=== PATIENT | female | born 1955 | race Hispanic/Latino ===

== ENCOUNTER 2020-08-16 05:30 | Emergency (ER) | payer OTHER ==
[~2020-08-16] VITALS: Ht 152.4 cm; Wt 84.8 kg
--- OUTSIDE RECORDS SUMMARY | 2020-08-16 05:55 | XMS REPORT | Continuity of Care Document ---
Author Author [facility] t Organization [facility] Address [address] [place] [address] Phone Unavailable Care Team Providers Care Tax Intern Name Role Phone Karina DODGE, Janelle PCP Fe Seay MD, Shanice Cha Attphys [phone] Tanya RN, Gabriela Attphys Unavailable Eddie NEGRO, Ga Bolaños Attphys Unavailable Mee Unger DO Attphys Karina DODGE, Janelle Attphys Payers Payer Name Policy Type Policy Number Effective Date Expiration Date S luiza AETNAAETNA CHOICE POS [id number] [place] [address] xxxxxxxxxx 2019 00:00[facility]00 [id number] [place] [address] xxxxx 2017 00:00:00 2022 2 3:59:59 [facility] Problems Condition Name Condition Details Condition Category Status Onset Date Resolution Date Last Treatment Date Treating Clinician Comments Source Carpal tunnel syndrome of right wrist Carpal tunnel syndrome of right wrist Disease Active 2018-01-06 00:00:00 [facility] Controlled type 2 diabetes mellitus with out complication, without long-term current use of insulin Controlled type 2 diabetes mellitus with out complication, without long-term current use of insulin Disease Active 2018-01-06 00:00: 00 [facility] Chronic tension headaches - Left-sided and occur every 3-4 weeks since 2002 Chronic tension headaches - Left-sided and occur every 3-4 weeks since 2002 Disease Active 2018-01-06 00:00:00 [facility] Mixed hyperlipidemia Mixed hyperlipidemia Disease Active 00:00:00 [facility] Generalized weakness Generalized weakness Disease Active 00:00:00 [facility] S/P carpal tunnel release S/P carpal tunnel release Disease Ac tive 2017-10-03 00:00:00 [facility] Endometrial polyp Endometrial polyp Disease Active 2015-10-05 00:00:00 [facility] Cataracts, both eyes Cataracts, both eyes Disease Active 00:00:00 [facility] No diabetic retinopathy in both eyes No diabetic retinopathy in both eyes Disease Active 2015-05-02 00:00:00 [facility] Pain in joint involving shoulder region Pain in joint involv ing shoulder region Disease Active 2014-10-03 00:00:00 [facility] Weakness Weakness Disease Active 2014-10-03 00:00:00 [facility] Gingivitis Chronic Gingivitis Chronic Disease Active 2014-07-12 00:00:0 0 [facility] Decay, teeth Decay, teeth Disease Active 2014-05-03 00:00:00 [facility] Onychomycosis Onychomycosis Disease Active 2009-01-13 00:00:00 [facility] Essential hypertension, benign Essential hypertension, benign Disease Active [facility] Metabolic syndrome Metabolic syndrome Disease Active [facility] Allergies, Adverse Reactions, Alerts Allergy Name Allergy Type Status Severity Reaction(s) Onset Date Inacti ve Date Treating Clinician Comments Source Enalapril Propensity to adverse reactions to drug Active Cough 2007-05-11 00:00:00 [facility] Family History Family Member Diagnosis Comments Start Date Stop Date Source Natural brother Diabetes [facility] alth Social History Social Habit Start Date Stop Date Quantity Comments Source Sex Assigned At [facility] Exposure to SARS-CoV-2 (event) Yes [facility] Alcohol intake 2020-07-10 00:00:00 2020-07-10 00:00:00 Current non-drinker of alcohol (finding) [facility] History SDOH Food Worry 2018-12-10 00:00:00 2018-12-10 00:00:00 1 [facility] Food Scarcity 2018-12-10 00:00:00 2018-12-10 00:00:00 1 [facility] Smoking Status Start Date Stop Date Source Never smoker [facility] Medications Ordered Medication Name Filled Medication Name Start Date Stop Da te Current Medication? Ordering Clinician Indication Dosage Frequency Signature (SIG) Comments Components Source blood glucose meter 2020-07-21 00:00:00 Yes Type 2 diabetes mellitus without complication, without long-term current use of insulin Use as directed.. [facility] lancets 28 gauge 2020-07-21 00:00:00 Yes Controlled type 2 diabetes mellitus without complication, without long-term current use of insulin Q.5D Use 2 times daily [facility] albuterol 90 mcg/actuation inhaler 2020-07-21 00:00:00 Yes COVID-19 virus infection 2{puff} Inhale 2 Puffs by mo ut 4 times daily as needed for Shortness of Breath (cough). [facility] th benzonatate (TESSALON PERLES) 100 mg capsule 00:00:00 2020-07-28 23:59:00 No COVID-19 virus infection 100mg Take 1 capsule by mouth 3 times daily as needed for up to 7 days for Cough. [facility] losartan (COZAAR) 100 mg tablet 2020-07-10 00:00:00 Yes Essential hypertension 100mg QD Take 1 tablet by mouth daily. [facility] metFORMIN (GLUCOPHAGE XR) 500 mg ER extended release tablet 2020-07-10 00:00:00 Yes Type 2 diabetes mellitus with complication, without long-term current use of insulin 500mg Q.5D Take 1 tablet by mouth 2 times daly y. [facility] losartan (COZAAR) 100 mg tablet 2020-07-10 00:00:00 00:00:00 No Essential hypertension 100mg QD Take 1 tablet by mouth daily. [facility] hydroCHLOROthiazide (HYDRODIURIL) 25 mg tablet 2020-06-15 00 :00:00 Yes Essential hypertension TAKE 1 TABLET BY MOUTH ONCE DAILY FOR HIGH BLOOD PRESSURE [facility] escitalopram (LEXAPRO) 5 mg tablet 2020-06-12 00:00:00 Y es Depressed mood 5mg QD Take 1 tablet by mouth daily. [facility] clotrimazole (LOTRIMIN) 1 % topical cream 2020-06-12 00:00:0 0 Yes Onychomycosis Q.5D Apply to affected area 2 times d aily For toe nail fungus. [facility] tropicamide (MYDRIACYL) 0.5 % ophthalmic solution 2020-06-12 00:00:00 2020-12-09 23:59:00 Yes Type 2 diabetes hunter itus with complication, without long-term current use of insulin 1[drp] Instill 1 Drop in each eye once as needed for up to 1 dose (for poor retina scan image). [facility] amLODIPine (NORVASC) 10 mg tablet 2020-06-08 00:00:00 Yes Essential hypertension Take 1 tablet by mouth once daily [facility] blood glucose test strips 2020-01-27 00:00:00 Yes Controlled type 2 diabetes mellitus without complication, without long-term current use of insulin 2 times weekly Use 2 times weekly (once per day on Fri,) to test blood sugar. [facility] lancets 28 gauge 2020-01-25 00:00:00 2020-07-21 00:00:00 No Controlled type 2 diabetes mellitus without complication, without long-term current use of insulin Q.5D Use 2 times daily [facility] atorvastatin (LIPITOR) 40 mg tablet 2019-06-14 00:00:00 Yes Hyperlipidemia LDL goal <100 40mg Take 1 tablet by mouth at bedtime nightly. [facility] omeprazole (PRILOSEC) 20 mg delayed release capsule 06-14 00:00:00 Yes Gastroesophageal reflux disease without esophagitis 20mg QD Take 1 capsule by mouth daily. [facility] losartan (COZAAR) 100 mg tablet 2019-06-14 00:00:00 00:00:00 No Essential hypertension 100mg QD Take 1 tablet by mouth daily. [facility] metFORMIN (GLUCOPHAGE XR) 500 mg ER extended release tablet 2019-06-14 00:00:00 2020-07-10 00:00:00 No Type 2 diabe boom mellitus with complication, without long-term current use of insulin 500mg Q.5D Take 1 tablet by mouth 2 times daily. [facility] hydroCHLOROthiazide (HYDRODIURIL) 25 mg tablet 2 00:00:00 2020-06-15 00:00:00 No Essential hypertension 25mg QD Ta ke 1 tablet by mouth daily FOR HIGH BLOOD PRESSURE. [facility] amLODIPine (NORVASC) 10 mg tablet 2019-06-14 00:00:00 2019 00:00:00 No Essential hypertension 10mg QD Take 1 tablet by mouth daly hoffman [facility] ketoconazole (NIZORAL) 2 % topical cream 2019-03 00:00:00 2020-01-25 00:00:00 No Onychomycosis Q.5D Apply to affected area 2 times daily. [facility] tropicamide (MYDRIACYL) 0.5 % ophthalmic solution 2019-04-08 00:00:00 2019-10-05 23:59:00 No Type 2 diabetes hunter itus with complication, unspecified whether shelter insulin use 1[drp] Instill 1 Drop in each eye once as needed for up to 1 dose (for poor retina scan image). [facility] loratadine (CLARITIN) 10 mg tablet 2018-12-10 00:00:00 00:00:00 No Nasal polyp 10mg QD Take 1 tablet by mouth daily. [facility] blood glucose test strips 2018-06-22 00:00:00 Yes Q.5D 2 times daily to test blood sugar. [facility] lancets 28 gauge 2018-06-22 00:00:00 2020-01-25 00:00:00 No Q.5D Use 2 times daily [facility] fluticasone (FLONASE) 50 mcg/actuation nasal spray 2018-02-13 00:00:00 2020-01-25 00:00:00 No Bronchitis, allergic , unspecified asthma severity, uncomplicated 1{spray} QD Use 1 Veteran in each nostril daily. [facility] naproxen (NAPROSYN) 375 mg tablet 2018-01-06 00:00:00 2019 00:00:00 No Chronic tension-type headache, not intractable 375mg Q .[id number] Take 1 tablet by mouth 3 times daily with meals. [facility] blood glucose meter 2017-11-06 00:00:00 2020-07-21 00:00:00 No Type 2 diabetes mellitus without complication, without long-term current use of insulin Use as directed.. [facility] blood glucose meter 2013-04-14 00:00:00 2020-01-25 00:00:00 No Borderline diabetes Use as directed. [facility] Immunizations Ordered Immunization Name Filled Immunization Name Date Status Comments Source Influenza Vaccine, Seasonal, Injectable 2018-06-22 00:00:0 0 Completed [facility] Herpes Zoster Vaccine In Clinic 2018-02-13 00:00:00 Comple isaac [facility] Influenza <Unspecified> 2017-10-30 00:00:00 Completed [facility] Influenza Vaccine 2016-09-09 00:00:00 Completed [facility] Tdap Tetanus, diphtheria, acellular pertussis Vaccine 2016-06-17 00:00:00 Completed [facility] PPV 23 Pneumococcal Polysaccaride 2016-06-17 00:00:00 Comp leted [facility] Influenza Vaccine 2015-06-26 00:00:00 Completed [facility] Influenza Vaccine 2014-09-12 00:00:00 Completed [facility] Influenza Vaccine 2013-07-19 00:00:00 Completed [facility] Influenza Vaccine 2012-07-09 00:00:00 Completed [facility] Influenza Vaccine 2011-07-25 00:00:00 Completed [facility] Influenza Vaccine 2010-09-24 00:00:00 Completed [facility] Influenza A (H1N1) Vac Injection 2009-10-19 00:00:00 Compl eted [facility] Influenza Vaccine 2008-09-08 00:00:00 Completed [facility] Influenza Vaccine 2007-11-20 00:00:00 Completed [facility] Influenza Vaccine 2006-07-14 00:00:00 Completed [facility] Td Tetanus, diphtheria Toxoids Vaccine 2006-01-17 00:00:00 Completed [facility] Vital Signs Vital Name Observation Time Observation Value Comments Source Systolic blood pressure 2020-06-12 08:15:00 152 mm[Hg] [facility] Diastolic blood pressure 2020-06-12 08:15:00 75 mm[Hg] [facility] Heart rate 2020-06-12 08:15:00 98 /min [facility] Body temperature 2020-06-12 08:15:00 36.72 Flor [facility] Respiratory rate 2020-06-12 08:15:00 16 /min [facility] Body height 2020-06-12 08:15:00 149.9 cm [facility] Body weight 2020-06-12 08:15:00 85.458 kg [facility] BMI 2020-06-12 08:15:00 38.05 kg/m2 [facility] Procedures Procedure Date / Time Performed Performing Clinician Sourc e FECAL OCCULT BLOOD 2020-06-27 11:11:[address] [facility] OPHTHALMOLOGY RETINAL SCAN 2020-06-27 08:45:07 Ange French [facility] MAMMOGRAM BILAT SCREEN DIGITAL 2020-06-27 08:28:06 Starla French [facility] HEMOGLOBIN A1C 2020-06-12 09:09:00 [facility] VITAMIN B12 2020-06-12 09:09:00 [facility] FOLIC ACID 2020-06-12 09:09:00 [facility] FERRITIN 2020-06-12 09:09:00 Rickene [facility] IRON PROFILE 2020-06-12 09:09:00 [facility]la [facility] VIT D, 25-HYDROXY 2020-06-12 09:09:00 Starla French [facility] THYROID STIMULATING HORMONE (TSH) 2020-06-12 09:09:00 Starla Arambula [facility] HEMOCCULT KIT FOR SPECIMEN COLLECTION AT HOME 2020-06-12 08: 49:59 Starla French [facility] DIABETIC FOOT EXAM 2020-06-12 08:33:[address] [facility] COMPREHENSIVE METABOLIC PANEL 2020-01-26 12:49:00 Starla French [facility] LIPID PROFILE 2020-01-26 12:49:00 Starla French is [facility] HEMOGLOBIN A1C 2020-01-26 12:49:00 Starla French is [facility] THYROID STIMULATING HORMONE (TSH) 2020-01-26 12:49:00 [facility] Schmidt [facility] HEMOCCULT KIT FOR SPECIMEN COLLECTION AT HOME 2020-01-25 09: 50:33 RenzoStarla Flynn [facility] Plan of Care Planned Activity Planned Date Details Comments Source Future Scheduled Test 2021-06-27 00:00:00 Breast Cancer Scrn (Yearly) [code = Breast Cancer Scrn (Yearly)] [facility] Scheduled Test 2021-06-27 00:00:00 Screening for brendon gnant neoplasm of colon (procedure) [code = 498221778] [facility] Scheduled Test 2021-06-27 00:00:00 DM Retinal Exam (Y early) [code = DM Retinal Exam (Yearly)] [facility] Scheduled Test 2021-06-12 00:00:00 DM Foot Exam (Year ly) [code = DM Foot Exam (Yearly)] [facility] Scheduled Test 2021-06-12 00:00:00 Hemoglobin A1c dano surement (procedure) [code = 44747234] [facility] Scheduled Test 2020-06-26 00:00:00 Screening for brendon gnant neoplasm of cervix (procedure) [code = 803005214] [facility] Scheduled Test 2020-06-26 00:00:00 Screening for brendon gnant neoplasm of cervix (procedure) [code = 312240540] [facility] Encounters Start Date/Time End Date/Time Encounter Type Admission Type [facility] Care Department Encounter ID Source 2018-09-16 00:00:00 2018-09-16 00:00:00 Outpatient [facility] [id number] [facility] 2018-09-01 00:00:00 2018-09-01 00:00:00 Outpatient [facility] [id number] [facility] 2018-06-29 14:23:19 2018-06-29 14:23:19 Outpatient [facility] [id number] [facility] 2018-06-24 07:14:03 2018-06-24 07:14:03 Outpatient [facility] [id number] [facility] 2018-06-22 07:57:38 2018-06-22 07:57:38 Outpatient [facility] [id number] [facility] 2018-06-10 08:31:49 2018-06-10 08:31:49 Outpatient [facility] [id number] [facility] 2018-06-04 13:30:29 2018-06-04 13:30:29 Outpatient [facility] [id number] [facility] 2018-05-27 00:00:00 2018-05-27 00:00:00 Outpatient [facility] [id number] [facility] 2018-05-21 11:02:03 2018-05-21 11:02:03 Outpatient [facility] [id number] [facility] 2018-05-15 00:00:00 2018-05-15 00:00:00 Outpatient [facility] [id number] [facility] 2018-05-13 00:00:00 2018-05-13 00:00:00 Outpatient [facility] [id number] [facility] 2018-04-27 10:28:07 2018-04-27 10:28:07 Outpatient [facility] [id number] [facility] 2018-03-31 09:00:46 2018-03-31 09:00:46 Outpatient [facility] [id number] [facility] 2018-03-11 08:22:18 2018-03-11 08:22:18 Outpatient [facility] [id number] [facility] 2018-02-13 08:46:20 2018-02-13 08:46:20 Outpatient [facility] [id number] [facility] 2018-02-11 08:59:09 2018-02-11 08:59:09 Outpatient [facility] [id number] [facility] 2018-01-16 06:51:41 2018-01-16 06:51:41 Outpatient [facility] [id number] [facility] 2018-01-06 08:51:23 2018-01-06 08:51:23 Outpatient [facility] [id number] [facility] 2018-01-02 06:47:20 2018-01-02 06:47:20 Outpatient [facility] [id number] [facility] 2017-12-22 14:32:53 2017-12-22 14:32:53 Outpatient [facility] [id number] [facility] 2017-12-19 07:01:37 2017-12-19 07:01:37 Outpatient [facility] [id number] [facility] 2017-12-05 07:10:40 2017-12-05 07:10:40 Outpatient [facility] [id number] [facility] 2017-12-02 10:36:30 2017-12-02 10:36:30 Outpatient [facility] [id number] [facility] 2017-11-21 00:00:00 2017-11-21 00:00:00 Outpatient [facility] [id number] [facility] 2017-11-21 00:00:00 2017-11-21 00:00:00 Outpatient [facility] [id number] [facility] 2017-11-07 07:01:59 2017-11-07 07:01:59 Outpatient [facility] [id number] [facility] 2017-11-06 16:01:07 2017-11-06 16:01:07 Outpatient [facility] [id number] [facility] 2017-11-06 13:22:13 2017-11-06 13:22:13 Outpatient [facility] [id number] [facility] 2017-10-31 00:00:00 2017-10-31 00:00:00 Outpatient [facility] [id number] [facility] 2017-10-17 10:16:25 2017-10-17 10:16:25 Outpatient [facility] [id number] [facility] 2017-10-16 11:32:30 2017-10-16 11:32:30 Outpatient [facility] [id number] [facility] 2017-10-10 00:00:00 2017-10-10 00:00:00 Outpatient [facility] [id number] [facility] 2017-10-03 06:52:16 2017-10-03 06:52:16 Outpatient [facility] [id number] [facility] 2017-10-02 12:25:09 2017-10-02 12:25:09 Outpatient [facility] [id number] [facility] 2017-09-25 00:00:00 2017-09-25 00:00:00 Outpatient [facility] [id number] [facility] 2017-09-18 10:43:00 2017-09-18 10:43:00 Outpatient [facility] [id number] [facility] 2017-09-04 08:26:47 2017-09-04 08:26:47 Outpatient [facility] [id number] [facility] 2017-09-04 00:00:00 2017-09-04 00:00:00 Outpatient [facility] [id number] [facility] 2017-08-31 00:52:00 2017-08-31 00:52:00 Emergency [facility] [id number] [facility] 2017-08-26 06:38:00 2017-08-26 06:38:00 Outpatient [facility] [id number] [facility] 2017-08-26 00:00:00 2017-08-26 00:00:00 Outpatient [facility] [id number] [facility] 2017-08-26 00:00:00 2017-08-26 00:00:00 Outpatient [facility] [id number] [facility] 2017-08-25 12:08:13 2017-08-25 12:08:13 Outpatient [facility] [id number] [facility] 2017-08-25 00:00:00 2017-08-25 00:00:00 Outpatient [facility] [id number] [facility] 2017-08-25 00:00:00 2017-08-25 00:00:00 Outpatient [facility] [id number] [facility] 2017-08-04 09:14:20 2017-08-04 09:14:20 Outpatient [facility] [id number] [facility] 2017-06-10 10:12:01 2017-06-10 10:12:01 Outpatient [facility] [id number] [facility] 2017-06-09 14:37:29 2017-06-09 14:37:29 Outpatient [facility] [id number] [facility] 2017-02-07 16:11:09 2017-02-07 16:11:09 Outpatient [facility] [id number] [facility] Results Test Description Test Time Test Comments Results Result Comments Source FECAL OCCULT BLOOD 2020-06-27 12:13:00 Test Item Occult Blood (test code = 83911-1) Negative Negative ALON (test code = ALON) Collected on 06/26/2020 Lab Interpretation (test code = 35844-4) Normal [facility] [id number] 10:53:36* Test Item Value Reference Range Interpretation Comments RETINAL SCAN-FINAL RESULT (test code = 49809) NORMAL Right Diabetic Retinopathy (test code = 332816) None Right Macular Edema (test code = 86968) None Right Other Suspected Conditions (test code = 39843) None Right Image Quality (test code = 81673) Gradable Image Left Diabetic Retinopathy (test code = 54555) None Left Macular Edema (test code = 04598) None Left Other Suspected Conditions (test code = 21000) None Left Image Quality (test code = 30376) Gradable Image ALON (test code = ALON) Retinal Study Result for MARIBEL REA, a 65 y/o, F (: 1955, )presented to [facility] on 06-27-2020 for a retinal imaging study of the left and right eyes. Based on the findings of the study, the following is recommended for XIMENA MCADAMSormal Scan: Please advise the patient to return for another scan in 1 year. Interpreting Provider's Comments: No comments provided Right eye findings: Normal Result. Negative for Diabetic Retinopathy. Left eye findings: Normal Result. Negative for Diabetic Retinopathy. This result was electronica lly signed by Nawaf Velasquez MD, , Taxonomy: [id number] on 06-27-2020 03:53:36 [facility] time. NOTE: Any pathology noted on this diabetic retinal evaluation should be confirmed by an appropriate ophthalmic examination. [facility] [id number] 08:31:00IMPRESSION: BENIGNThere is no mammographic evidence of malignancy. A 1 year screening mammogram is recommended. I have reviewed the study and agree with the f indings in the report. This document has been electronically signed. Ezequiel Garcia M.D.et,me/penrad:06/27/2020 08:31:44 Imaging Techn ologist: Ms. Josee Melchor RT(R)(M), [facility] Centerletter sent: Silvestre ign Exam Mammogram BI-RADS: 2 Benign G0202 z12.31Interface, Rad/Mammog In - 1 9:32 AM CDT#[id number] - MAMMOGRAM BILAT SCREEN DIGITALBILATERAL DIGITA L SCREENING MAMMOGRAM WITH CAD: 06/27/2020CLINICAL: Screening for malignancy. Co mparison is made to exams dated: 04/08/2019, 03/11/2018, 03/14/2017, 03/14/2016, 10/27/2014, and 08/27/2013 [facility]. There are scattered fibroglandu lar elements in both breasts that could obscure a lesion on mammography. Curren t study was also evaluated with a Computer Aided Detection (CAD) system. There are benign calcifications in both breasts. No significant masses, calcification s, or other findings are seen in either breast. There has been no significant i nterval change.IMPRESSIONIMPRESSION: BENIGNThere is no mammographic evidence of malignancy. A 1 year screening mammogram is recommended. I have reviewed the st udy and agree with the findings in the report.This document has been electronica lly signed.Ezequiel Garcia M.D.et,me/penrad:06/27/2020 08 :31:44 Programs Director: Ms. Josee Melchor RT(R)(M), [facility] enterletter sent: Benign Exam Mammogram BI-RADS: 2 Benign G0202 z12.31[facility] [id number] 03:07:00* Test Item Value Reference Range Interpretation Comments TIBC (test code = 2500-7) 269 ug/dL 250-450 UIBC (test code = 2501-5) 158 ug/dL 118-369 Iron (test code = 2498-4) 111 ug/dL 27-139 % Iron Sat (test code = 2502-3) 41 % 15-55 ALON (test code = ALNO) Performed at: [facility] [place], [place] [id number] Director: Tim Pedraza MD, Phone: [phone] [facility] CenterVitamin D, 29-Isnaqxqpnawijrrpa3748-00-21 13:22:00* Test Item Value Reference Range Interpretation Comments Vit D, 25-Hydroxy (test code = 06056850) 24.1 ng/mL 30-100 L Vitamin D Interpretation (test code = 53928183) Insufficient Suffic ient A Sufficient: >30.0Insufficient: 20.0 - 29.9Deficient: <20.0 Lab Interpretation (test code = 43581-6) Abnormal [facility] CenterVitamin [id number] 13:04:00* Test Item Value Reference Range Interpretation Comments Vitamin B12 (test code = 56756721) 252 pg/mL See comment Normal: 180-914 pg/mLIntermittent: 145-180 pg/mLDeficient: <=145.0 pg/mL [facility] CenterYzcixmUmpkxrzd3091-88-31 13:00:00* Test Item Value Reference Range Interpretation Comments Ferritin (test code = 80234802) 164.7 ng/mL 11-306.8 Lab Interpretation (test code = 36634-3) Normal [facility] CenterFolic [id number] 12:55:00* Test Item Value Reference Range Interpretation Comments Folic Acid (test code = 71446828) 11.8 ng/mL 5.9-24.8 Patien Fasting? (test code = 16001472) Yes [facility] CenterTSH [Thyroid Stimulating Hormone]2020-06-12 12:53:00* Test Item Value Reference Range Interpretation Comments TSH (test code = 84401448) 1.85 0.45- 5.33 uIU/mL If , please see the following reference ranges (not verified by lab): 1st Trimester: 0.05 -3.70 uIU/mL2nd Trimester: 0.31 -4.35 uIU/mL3rd Trimester: 0.41 - 5.18 uIU/mL Lab Interpretation (test code = 68105-1) Normal [facility] CenterHemoglobin [id number] 12:31:00* Test Item Value Reference Range Interpretation Comments Hemoglobin A1c (test code = 4548-4) 7.3 % 4.3-6.1 H Estimated Average Glucose (test code = 01308496) 163 mg/dL 70-11 0 H Lab Interpretation (test code = 11876-7) Abnormal [facility] CenterDIABETIC FOOT [id number] 08:33:01Starla French MD 06/12/2020 9:07 AMDiabetic Foot Exam was performed at 06/12/2020 8:35 AM. Right foot sensation is normal, right foot pulses are normal, right foot appearance is normal. Left foot sensation is normal, left foot pulses are normal, left foot appearance is normal. [facility] CenterLipid Lhobbzx7965-47-30 20:44:00* Test Item Value Reference Range Interpretation Comments Cholesterol (test code = 2093-3) 171.0 mg/dL <=200.0 Triglyceride (test code = 55333463) 162 mg/dL <150 H HDL (test code = 2085-9) 47.0 mg/dL See Reference Range Narrative . LDL (test code = 30833-7) 92 mg/dL <100 Op timal: < 100.0 mg/dLNear Optimal: 120-129 mg/dLBorderline: 130-159 mg/dLHigh: 160-189 mg/dLVery High: >=190 mg/dL Patient Fasting? (test code = 97461349) No ALON (test code = ALON) Patient is not fasting. For a triglyceride result greater than 440 mg/dL, consider re-testing when the patient is in a fasting state. Lab Interpretation (test code = 00891-6) Abnormal [facility] CenterComprehensive Metabolic Eafye0653-94-05 20:44:00* Test Item Value Reference Range Interpretation Comments Sodium (test code = 2951-2) 140 mmol/L 136-145 Potassium (test code = 2823-3) 4.1 mmol/L 3.5-5.1 Chloride (test code = 2075-0) 103 mmol/L 98-107 CO2 (test code = 71569410) 26 mmol/L 21-31 Glucose (test code = 24738206) 121 mg/dL 70-110 H Calcium (test code = 75033630) 9.8 mg/dL 8.6-10.3 Urea Nitrogen (test code = 51945645) 18.0 mg/dL 7-25 Creatinine (test code = 25684226) 1.0 mg/dL 0.6-1.2 Alkaline Phosphatase (test code = 25203172) 104 U/L 34-104 ALT (test code = 29733054) 14 U/L 7-52 AST (test code = 73965764) 14 U/L 13-39 Total Protein (test code = 2885-2) 7.5 g/dL 6-8.3 GFR, Estimated (test code = 19725025) 56 >=90 mL/min/1.73 m2 L Albumin (test code = 43082-5) 4.3 g/dL 3.7-5.3 Anion Gap (test code = 36517812) 11 mmol/L 5-16 Lab Interpretation (test code = 99480-7) [facility]normal [facility]
--- OUTSIDE RECORDS SUMMARY | 2020-08-16 05:55 | XMS REPORT | Continuity of Care Document ---
Author Author [facility] t Organization [facility] Address [address] [place] [address] Phone Unavailable Care Team Providers Care Sales Communications Manager Name Role Phone Karina DODGE, Janelle PCP Fe Seay MD, Shanice Cha Attphys [phone] Tanya RN, Gabriela Attphys Unavailable Eddie NEGRO, Ga Bolaños Attphys Unavailable Mee Unger DO Attphys Karina DODGE, Janelle Attphys Payers Payer Name Policy Type Policy Number Effective Date Expiration Date S luiza AETNAAETNA CHOICE POS [id number][id number] [place] [id number] xxxxxxxxxx 2019 00:00:00 [facility] [id number] [place] [address] xxxxx 2017 00:00:00 2022 2 3:59:59 [facility] Problems Condition Name Condition Details Condition Category Status Onset Date Resolution Date Last Treatment Date Treating Clinician Comments Source Carpal tunnel syndrome of right wrist Carpal tunnel syndrome of right wrist Disease Active 2018-01-06 00:00:00 [facility] Controlled type 2 diabetes mellitus with out complication, without long-term current use of insulin Controlled type 2 diabetes mellitus with out complication, without long-term current use of insulin Disease Active 2018-01-06 00:00: 00 [facility] Chronic tension headaches - Left-sided and occur every 3-4 weeks since 2002 Chronic tension headaches - Left-sided and occur every 3-4 weeks since 2002 Disease Active 2018-01-06 00:00:00 [facility] Mixed hyperlipidemia Mixed hyperlipidemia Disease Active 00:00:00 [facility] Generalized weakness Generalized weakness Disease Active 00:00:00 [facility] S/P carpal tunnel release S/P carpal tunnel release Disease Ac tive 2017-10-03 00:00:00 [facility] Endometrial polyp Endometrial polyp Disease Active 2015-10-05 00:00:00 [facility] Cataracts, both eyes Cataracts, both eyes Disease Active 00:00:00 [facility] No diabetic retinopathy in both eyes No diabetic retinopathy in both eyes Disease Active 2015-05-02 00:00:00 [facility] Pain in joint involving shoulder region Pain in joint involv ing shoulder region Disease Active 2014-10-03 00:00:00 [facility] Weakness Weakness Disease Active 2014-10-03 00:00:00 [facility] Gingivitis Chronic Gingivitis Chronic Disease Active 2014-07-12 00:00:0 0 [facility] Decay, teeth Decay, teeth Disease Active 2014-05-03 00:00:00 [facility] Onychomycosis Onychomycosis Disease Active 2009-01-13 00:00:00 [facility] Essential hypertension, benign Essential hypertension, benign Disease Active [facility] Metabolic syndrome Metabolic syndrome Disease Active [facility] Allergies, Adverse Reactions, Alerts Allergy Name Allergy Type Status Severity Reaction(s) Onset Date Inacti ve Date Treating Clinician Comments Source Enalapril Propensity to adverse reactions to drug Active Cough 2007-05-11 00:00:00 [facility] Family History Family Member Diagnosis Comments Start Date Stop Date Source Natural brother Diabetes [facility] alth Social History Social Habit Start Date Stop Date Quantity Comments Source Sex Assigned At [facility] Exposure to SARS-CoV-2 (event) Yes [facility] Alcohol intake 2020-07-10 00:00:00 2020-07-10 00:00:00 Current non-drinker of alcohol (finding) [facility] History SDOH Food Worry 2018-12-10 00:00:00 2018-12-10 00:00:00 1 [facility] Food Scarcity 2018-12-10 00:00:00 2018-12-10 00:00:00 1 [facility] Smoking Status Start Date Stop Date Source Never smoker [facility] Medications Ordered Medication Name Filled Medication Name Start Date Stop Da te Current Medication? Ordering Clinician Indication Dosage Frequency Signature (SIG) Comments Components Source blood glucose meter 2020-07-21 00:00:00 Yes Type 2 diabetes mellitus without complication, without long-term current use of insulin Use as directed.. [facility] lancets 28 gauge 2020-07-21 00:00:00 Yes Controlled type 2 diabetes mellitus without complication, without long-term current use of insulin Q.5D Use 2 times daily [facility] albuterol 90 mcg/actuation inhaler 2020-07-21 00:00:00 Yes COVID-19 virus infection 2{puff} Inhale 2 Puffs by mo ut 4 times daily as needed for Shortness of Breath (cough). [facility] th benzonatate (TESSALON PERLES) 100 mg capsule 00:00:00 2020-07-28 23:59:00 No COVID-19 virus infection 100mg Take 1 capsule by mouth 3 times daily as needed for up to 7 days for Cough. [facility] losartan (COZAAR) 100 mg tablet 2020-07-10 00:00:00 Yes Essential hypertension 100mg QD Take 1 tablet by mouth daily. [facility] metFORMIN (GLUCOPHAGE XR) 500 mg ER extended release tablet 2020-07-10 00:00:00 Yes Type 2 diabetes mellitus with complication, without long-term current use of insulin 500mg Q.5D Take 1 tablet by mouth 2 times daly y. [facility] losartan (COZAAR) 100 mg tablet 2020-07-10 00:00:00 00:00:00 No Essential hypertension 100mg QD Take 1 tablet by mouth daily. [facility] hydroCHLOROthiazide (HYDRODIURIL) 25 mg tablet 2020-06-15 00 :00:00 Yes Essential hypertension TAKE 1 TABLET BY MOUTH ONCE DAILY FOR HIGH BLOOD PRESSURE [facility] escitalopram (LEXAPRO) 5 mg tablet 2020-06-12 00:00:00 Y es Depressed mood 5mg QD Take 1 tablet by mouth daily. [facility] clotrimazole (LOTRIMIN) 1 % topical cream 2020-06-12 00:00:0 0 Yes Onychomycosis Q.5D Apply to affected area 2 times d aily For toe nail fungus. [facility] tropicamide (MYDRIACYL) 0.5 % ophthalmic solution 2020-06-12 00:00:00 2020-12-09 23:59:00 Yes Type 2 diabetes hunter itus with complication, without long-term current use of insulin 1[drp] Instill 1 Drop in each eye once as needed for up to 1 dose (for poor retina scan image). [facility] amLODIPine (NORVASC) 10 mg tablet 2020-06-08 00:00:00 Yes Essential hypertension Take 1 tablet by mouth once daily [facility] blood glucose test strips 2020-01-27 00:00:00 Yes Controlled type 2 diabetes mellitus without complication, without long-term current use of insulin 2 times weekly Use 2 times weekly (once per day on Fri,) to test blood sugar. [facility] lancets 28 gauge 2020-01-25 00:00:00 2020-07-21 00:00:00 No Controlled type 2 diabetes mellitus without complication, without long-term current use of insulin Q.5D Use 2 times daily [facility] atorvastatin (LIPITOR) 40 mg tablet 2019-06-14 00:00:00 Yes Hyperlipidemia LDL goal <100 40mg Take 1 tablet by mouth at bedtime nightly. [facility] omeprazole (PRILOSEC) 20 mg delayed release capsule 06-14 00:00:00 Yes Gastroesophageal reflux disease without esophagitis 20mg QD Take 1 capsule by mouth daily. [facility] losartan (COZAAR) 100 mg tablet 2019-06-14 00:00:00 00:00:00 No Essential hypertension 100mg QD Take 1 tablet by mouth daily. [facility] metFORMIN (GLUCOPHAGE XR) 500 mg ER extended release tablet 2019-06-14 00:00:00 2020-07-10 00:00:00 No Type 2 diabe boom mellitus with complication, without long-term current use of insulin 500mg Q.5D Take 1 tablet by mouth 2 times daily. [facility] hydroCHLOROthiazide (HYDRODIURIL) 25 mg tablet 2 00:00:00 2020-06-15 00:00:00 No Essential hypertension 25mg QD Ta ke 1 tablet by mouth daily FOR HIGH BLOOD PRESSURE. [facility] amLODIPine (NORVASC) 10 mg tablet 2019-06-14 00:00:00 2019 00:00:00 No Essential hypertension 10mg QD Take 1 tablet by mouth daly hoffman [facility] ketoconazole (NIZORAL) 2 % topical cream 2019-03 00:00:00 2020-01-25 00:00:00 No Onychomycosis Q.5D Apply to affected area 2 times daily. [facility] tropicamide (MYDRIACYL) 0.5 % ophthalmic solution 2019-04-08 00:00:00 2019-10-05 23:59:00 No Type 2 diabetes hunter itus with complication, unspecified whether custodial insulin use 1[drp] Instill 1 Drop in each eye once as needed for up to 1 dose (for poor retina scan image). [facility] loratadine (CLARITIN) 10 mg tablet 2018-12-10 00:00:00 00:00:00 No Nasal polyp 10mg QD Take 1 tablet by mouth daily. [facility] blood glucose test strips 2018-06-22 00:00:00 Yes Q.5D 2 times daily to test blood sugar. [facility] lancets 28 gauge 2018-06-22 00:00:00 2020-01-25 00:00:00 No Q.5D Use 2 times daily [facility] fluticasone (FLONASE) 50 mcg/actuation nasal spray 2018-02-13 00:00:00 2020-01-25 00:00:00 No Bronchitis, allergic , unspecified asthma severity, uncomplicated 1{spray} QD Use 1 [place] in each nostril daily. [facility] naproxen (NAPROSYN) 375 mg tablet 2018-01-06 00:00:00 2019 00:00:00 No Chronic tension-type headache, not intractable 375mg Q .[id number] Take 1 tablet by mouth 3 times daily with meals. [facility] blood glucose meter 2017-11-06 00:00:00 2020-07-21 00:00:00 No Type 2 diabetes mellitus without complication, without long-term current use of insulin Use as directed.. [facility] blood glucose meter 2013-04-14 00:00:00 2020-01-25 00:00:00 No Borderline diabetes Use as directed. [facility] Immunizations Ordered Immunization Name Filled Immunization Name Date Status Comments Source Influenza Vaccine, Seasonal, Injectable 2018-06-22 00:00:0 0 Completed [facility] Herpes Zoster Vaccine In Clinic 2018-02-13 00:00:00 Comple isaac [facility] Influenza <Unspecified> 2017-10-30 00:00:00 Completed [facility] Influenza Vaccine 2016-09-09 00:00:00 Completed [facility] Tdap Tetanus, diphtheria, acellular pertussis Vaccine 2016-06-17 00:00:00 Completed [facility] PPV 23 Pneumococcal Polysaccaride 2016-06-17 00:00:00 Comp leted [facility] Influenza Vaccine 2015-06-26 00:00:00 Completed [facility] Influenza Vaccine 2014-09-12 00:00:00 Completed [facility] Influenza Vaccine 2013-07-19 00:00:00 Completed [facility] Influenza Vaccine 2012-07-09 00:00:00 Completed [facility] Influenza Vaccine 2011-07-25 00:00:00 Completed [facility] Influenza Vaccine 2010-09-24 00:00:00 Completed [facility] Influenza A (H1N1) Vac Injection 2009-10-19 00:00:00 Compl eted [facility] Influenza Vaccine 2008-09-08 00:00:00 Completed [facility] Influenza Vaccine 2007-11-20 00:00:00 Completed [facility] Influenza Vaccine 2006-07-14 00:00:00 Completed [facility] Td Tetanus, diphtheria Toxoids Vaccine 2006-01-17 00:00:00 Completed [facility] Vital Signs Vital Name Observation Time Observation Value Comments Source Systolic blood pressure 2020-06-12 08:15:00 152 mm[Hg] [facility] Diastolic blood pressure 2020-06-12 08:15:00 75 mm[Hg] [facility] Heart rate 2020-06-12 08:15:00 98 /min [facility] Body temperature 2020-06-12 08:15:00 36.72 Flor [facility] Respiratory rate 2020-06-12 08:15:00 16 /min [facility] Body height 2020-06-12 08:15:00 149.9 cm [facility] Body weight 2020-06-12 08:15:00 85.458 kg [facility] BMI 2020-06-12 08:15:00 38.05 kg/m2 [facility] Procedures Procedure Date / Time Performed Performing Clinician Sourc e FECAL OCCULT BLOOD 2020-06-27 11:11:00 Starla French [facility] OPHTHALMOLOGY RETINAL SCAN 2020-06-27 08:45:07 Ange Frnech [facility] MAMMOGRAM BILAT SCREEN DIGITAL 2020-06-27 08:28:06 Starla French [facility] HEMOGLOBIN A1C 2020-06-12 09:09:00 [facility] VITAMIN B12 2020-06-12 09:09:00 [facility] FOLIC ACID 2020-06-12 09:09:00 [facility] FERRITIN 2020-06-12 09:09:00 Rickene [facility] IRON PROFILE 2020-06-12 09:09:00 [facility] VIT D, 25-HYDROXY 2020-06-12 09:09:00 Starla French [facility] THYROID STIMULATING HORMONE (TSH) 2020-06-12 09:09:00 Starla Arambula [facility] HEMOCCULT KIT FOR SPECIMEN COLLECTION AT HOME 2020-06-12 08: 49:59 Starla French [facility] DIABETIC FOOT EXAM 2020-06-12 08:33:01 Starla French [facility] COMPREHENSIVE METABOLIC PANEL 2020-01-26 12:49:00 Starla French [facility] LIPID PROFILE 2020-01-26 12:49:00 [facility] HEMOGLOBIN A1C 2020-01-26 12:49:00 [facility]la [facility] THYROID STIMULATING HORMONE (TSH) 2020-01-26 12:49:00 [facility] Starla Schmidt [facility] HEMOCCULT KIT FOR SPECIMEN COLLECTION AT HOME 2020-01-25 09: 50:33 RenzoStarla Flynn [facility] Plan of Care Planned Activity Planned Date Details Comments Source Future Scheduled Test 2021-06-27 00:00:00 Breast Cancer Scrn (Yearly) [code = Breast Cancer Scrn (Yearly)] [facility] Scheduled Test 2021-06-27 00:00:00 Screening for brendon gnant neoplasm of colon (procedure) [code = 519004153] [facility] Scheduled Test 2021-06-27 00:00:00 DM Retinal Exam (Y early) [code = DM Retinal Exam (Yearly)] [facility] Scheduled Test 2021-06-12 00:00:00 DM Foot Exam (Year ly) [code = DM Foot Exam (Yearly)] [facility] Scheduled Test 2021-06-12 00:00:00 Hemoglobin A1c dano surement (procedure) [code = 80483104] [facility] Scheduled Test 2020-06-26 00:00:00 Screening for brendon gnant neoplasm of cervix (procedure) [code = 563315287] [facility] Scheduled Test 2020-06-26 00:00:00 Screening for brendon gnant neoplasm of cervix (procedure) [code = 385853246] [facility] Encounters Start Date/Time End Date/Time Encounter Type Ad[facility] Type [facility] Care Department Encounter ID Source 2018-09-16 00:00:00 2018-09-16 00:00:[address] [facility] [id number] [facility] 2018-09-01 00:00:00 2018-09-01 00:00:[address] [facility] [id number] [facility] 2018-06-29 14:23:19 2018-06-29 14:23:[address] [facility] [id number] [facility] 2018-06-24 07:14:03 2018-06-24 07:14:[address] [facility] [id number] [facility] 2018-06-22 07:57:38 2018-06-22 07:57:[address] [facility] [id number] [facility] 2018-06-10 08:31:49 2018-06-10 08:31:[address] [facility] [id number] [facility] 2018-06-04 13:30:29 2018-06-04 13:30:[address] [facility] [id number] [facility] 2018-05-27 00:00:00 2018-05-27 00:00:[address] [facility] [id number] [facility] 2018-05-21 11:02:03 2018-05-21 11:02:[address] [facility] [id number] [facility] 2018-05-15 00:00:00 2018-05-15 00:00:[address] [facility] [id number] [facility] 2018-05-13 00:00:00 2018-05-13 00:00:[address] [facility] [id number] [facility] 2018-04-27 10:28:07 2018-04-27 10:28:[address] [facility] [id number] [facility] 2018-03-31 09:00:46 2018-03-31 09:00:46 Outpatient [facility] [id number] [facility] 2018-03-11 08:22:18 2018-03-11 08:22:18 Outpatient [facility] [id number] [facility] 2018-02-13 08:46:20 2018-02-13 08:46:[address] [facility] [id number] [facility] 2018-02-11 08:59:09 2018-02-11 08:59:09 [facility]patient [facility] [id number] [facility] 2018-01-16 06:51:41 2018-01-16 06:51:[address] [facility] [id number] [facility] 2018-01-06 08:51:23 2018-01-06 08:51:[address] [facility] [id number] [facility] 2018-01-02 06:47:20 2018-01-02 06:47:[address] [facility] [id number] [facility] 2017-12-22 14:32:53 2017-12-22 14:32:[address] [facility] [id number] [facility] 2017-12-19 07:01:37 2017-12-19 07:01:[address] [facility] [id number] [facility] 2017-12-05 07:10:40 2017-12-05 07:10:[address] [facility] [id number] [facility] 2017-12-02 10:36:30 2017-12-02 10:36:[address] [facility] [id number] [facility] 2017-11-21 00:00:00 2017-11-21 00:00:[address] [facility] [id number] [facility] 2017-11-21 00:00:00 2017-11-21 00:00:[address] [facility] [id number] [facility] 2017-11-07 07:01:59 2017-11-07 07:01:[address] [facility] [id number] [facility] 2017-11-06 16:01:07 2017-11-06 16:01:[address] [facility] [id number] [facility] 2017-11-06 13:22:13 2017-11-06 13:22:[address] [facility] [id number] [facility] 2017-10-31 00:00:00 2017-10-31 00:00:[address] [facility] [id number] [facility] 2017-10-17 10:16:25 2017-10-17 10:16:[address] [facility] [id number] [facility] 2017-10-16 11:32:30 2017-10-16 11:32:[address] [facility] [id number] [facility] 2017-10-10 00:00:00 2017-10-10 00:00:[address] [facility] [id number] [facility] 2017-10-03 06:52:16 2017-10-03 06:52:[address] [facility] [id number] [facility] 2017-10-02 12:25:09 2017-10-02 12:25:[address] [facility] [id number] [facility] 2017-09-25 00:00:00 2017-09-25 00:00:[address] [facility] [id number] [facility] 2017-09-18 10:43:00 2017-09-18 10:43:[address] [facility] [id number] [facility] 2017-09-04 08:26:47 2017-09-04 08:26:[address] [facility] [id number] [facility] 2017-09-04 00:00:00 2017-09-04 00:00:[address] [facility] [id number] [facility] 2017-08-31 00:52:00 2017-08-31 00:52:00 Emergency [facility] [id number] [facility] 2017-08-26 06:38:00 2017-08-26 06:38:00 Outpatient [facility] [id number] [facility] 2017-08-26 00:00:00 2017-08-26 00:00:[address] [facility] [id number] [facility] 2017-08-26 00:00:00 2017-08-26 00:00:[address] [facility] [id number] [facility] 2017-08-25 12:08:13 2017-08-25 12:08:[address] [facility] [id number] [facility] 2017-08-25 00:00:00 2017-08-25 00:00:[address] [facility] [id number] [facility] 2017-08-25 00:00:00 2017-08-25 00:00:[address] [facility] [id number] [facility] 2017-08-04 09:14:20 2017-08-04 09:14:[address] [facility] [id number] [facility] 2017-06-10 10:12:01 2017-06-10 10:12:[address] [facility] [id number] [facility] 2017-06-09 14:37:29 2017-06-09 14:37:[address] [facility] [id number] [facility] 2017-02-07 16:11:09 2017-02-07 16:11:[address] [facility] [id number] [facility] Results Test Description Test Time Test Comments Results Result Comments Source FECAL OCCULT BLOOD 2020-06-27 12:13:00 Test Item Occult Blood (test code = 99205-3) Negative Negative ALON (test code = ALON) Collected on 06/26/2020 Lab Interpretation (test code = 22073-7) Normal [facility] [id number] 10:53:36* Test Item Value Reference Range Interpretation Comments RETINAL SCAN-FINAL RESULT (test code = 06113) NORMAL Right Diabetic Retinopathy (test code = 312462) None Right Macular Edema (test code = 32729) None Right Other Suspected Conditions (test code = 31734) None Right Image Quality (test code = 04528) Gradable Image Left Diabetic Retinopathy (test code = 01250) None Left Macular Edema (test code = 86515) None Left Other Suspected Conditions (test code = 05935) None Left Image Quality (test code = 66676) Gradable Image ALON (test code = ALON) Retinal Study Result for MARIBEL REA, a 65 y/o, F (: 1955, )presented to [facility] on 06-27-2020 for a retinal imaging study [...] signed by Nawaf Velasquez MD, , Taxonomy: [id number] on 06-27-2020 03:53:36 [facility] time. NOTE: Any pathology noted on this diabetic retinal evaluation should be confirmed by an appropriate ophthalmic examination. [facility] [id number] 08:31:00IMPRESSION: BENIGNThere is no mammographic evidence of malignancy. A 1 year screening mammogram is recommended. I have reviewed the study and agree with the f indings in the report. This document has been electronically signed. Ezequiel Garcia M.D.et,me/penrad:06/27/2020 08:31:44 Imaging Techn ologist: Ms. Josee Melchor RT(R)(M), [facility] Centerletter sent: Silvestre ign Exam Mammogram BI-RADS: 2 Benign G0202 z12.31Interface, Rad/Mammog In - 1 9:32 AM CDT#[id number] - MAMMOGRAM BILAT SCREEN DIGITALBILATERAL DIGITA L SCREENING MAMMOGRAM WITH CAD: 06/27/2020CLINICAL: Screening for malignancy. Co mparison is made to exams dated: 04/08/2019, 03/11/2018, 03/14/2017, 03/14/2016, 10/27/2014, and 08/27/2013 [facility]. There are scattered fibroglandu lar elements in [...] electronica lly signed.Ezequiel Garcia M.D.et,me/penrad:06/27/2020 08 :31:44 Shared Services Manager: Ms. Josee Melchor RT(R)(M), [facility] enterletter sent: Benign Exam Mammogram BI-RADS: 2 Benign G0202 z12.31[facility] [id number] 03:07:00* Test Item Value Reference Range Interpretation Comments TIBC (test code = 2500-7) 269 ug/dL 250-450 UIBC (test code = 2501-5) 158 ug/dL 118-369 Iron (test code = 2498-4) 111 ug/dL 27-139 % Iron Sat (test code = 2502-3) 41 % 15-55 ALON (test code = ALON) Performed at: [facility] [place], [place] [id number] Director: Tim Pedraza MD, Phone: [phone] [facility], [id number] 13:22:00* Test Item Value Reference Range Interpretation Comments Vit D, 25-Hydroxy (test code = 58866652) 24.1 ng/mL 30-100 L Vitamin D Interpretation (test code = 43288781) Insufficient Suffic ient A Sufficient: >30.0Insufficient: 20.0 - 29.9Deficient: <20.0 Lab Interpretation (test code = 33169-8) [id number] 13:04:00* Test Item Value Reference Range Interpretation Comments Vitamin B12 (test code = 96930682) 252 pg/mL See comment Normal: 180-914 pg/mLIntermittent: 145-180 pg/mLDeficient: <=145.0 pg/mL [id number] 13:00:00* Test Item Value Reference Range Interpretation Comments Ferritin (test code = 90942816) 164.7 ng/mL 11-306.8 Lab Interpretation (test code = 16507-2) Normal [facility] [id number] 12:55:00* Test Item Value Reference Range Interpretation Comments Folic Acid (test code = 53011425) 11.8 ng/mL 5.9-24.8 Patien Fasting? (test code = 56465765) Yes [facility] [Thyroid Stimulating Hormone]2020-06-12 12:53:00* Test Item Value Reference Range Interpretation Comments TSH (test code = 91685001) 1.85 0.45- 5.33 uIU/mL If , please see the following reference ranges (not verified by lab): 1st Trimester: 0.05 -3.70 uIU/mL2nd Trimester: 0.31 -4.35 uIU/mL3rd Trimester: 0.41 - 5.18 uIU/mL Lab Interpretation (test code = 38604-3) Normal [facility] [id number] 12:31:00* Test Item Value Reference Range Interpretation Comments Hemoglobin A1c (test code = 4548-4) 7.3 % 4.3-6.1 H Estimated Average Glucose (test code = 35364495) 163 mg/dL 70-11 0 H Lab Interpretation (test code = 20163-2) [facility]normal [facility] [id number] 08:33:01Starla French MD 06/12/2020 9:07 AMDiabetic Foot Exam was performed at 06/12/2020 8:35 AM. Right foot sensation is normal, right foot pulses are normal, right foot appearance is normal. Left foot sensation is normal, left foot pulses are normal, left foot appearance is normal. [facility] HospitalLip[facility] [id number] 20:44:00* Test Item Value Reference Range Interpretation Comments Cholesterol (test code = 2093-3) 171.0 mg/dL <=200.0 Triglyceride (test code = 83756599) 162 mg/dL <150 H HDL (test code = 2085-9) 47.0 mg/dL See Reference Range Narrative . LDL (test code = 65184-2) 92 mg/dL <100 Op timal: < 100.0 mg/dLNear Optimal: 120-129 mg/dLBorderline: 130-159 mg/dLHigh: 160-189 mg/dLVery High: >=190 mg/dL Patient Fasting? (test code = 21496086) No ALON (test code = ALON) Patient is not fasting. For a triglyceride result greater than 440 mg/dL, consider re-testing when the patient is in a fasting state. Lab Interpretation (test code = 23945-6) [facility]normal [facility] HospitalCom[facility] Metabolic [id number] 20:44:00* Test Item Value Reference Range Interpretation Comments Sodium (test code = 2951-2) 140 mmol/L 136-145 Potassium (test code = 2823-3) 4.1 mmol/L 3.5-5.1 Chloride (test code = 2075-0) 103 mmol/L 98-107 CO2 (test code = 40714446) 26 mmol/L 21-31 Glucose (test code = 17047935) 121 mg/dL 70-110 H Calcium (test code = 30599807) 9.8 mg/dL 8.6-10.3 Urea Nitrogen (test code = 60673357) 18.0 mg/dL 7-25 Creatinine (test code = 19445380) 1.0 mg/dL 0.6-1.2 Alkaline Phosphatase (test code = 22489161) 104 U/L 34-104 ALT (test code = 51383048) 14 U/L 7-52 AST (test code = 59078901) 14 U/L 13-39 Total Protein (test code = 2885-2) 7.5 g/dL 6-8.3 GFR, Estimated (test code = 10016593) 56 >=90 mL/min/1.73 m2 L Albumin (test code = 59413-8) 4.3 g/dL 3.7-5.3 Anion Gap (test code = 41591222) 11 mmol/L 5-16 Lab Interpretation (test code = 33050-9) [facility]
--- OUTSIDE RECORDS SUMMARY | 2020-08-16 05:55 | XMS REPORT | Clinical Summary ---
Author Author [facility] ict Organization [facility] ict Address Unknown Phone Unavailable Care Team Providers Care Recovery Manager Name Role Phone Cynthia May DDS [phone] Janelle Collins MD PCP Starla French MD PCP [phone] Allergies Comments Active Allergy Reactions Severity Noted Date Enalapril Cough 05/11/2007 Medications End Date Status Medication Sig Dispensed Refills Start Date Active blood glucose test strips 2 times daily 50 Each 11 to test blood 8 sugar. Active atorvastatin (LIPITOR) 40 Take 1 tablet 90 tablet 3 mg tabletIndications: by mouth at 9 Hyperlipidemia LDL goal bedtime <100 nightly. Active omeprazole (PRILOSEC) 20 Take 1 90 capsule 1 0 mg delayed release capsule by 9 capsuleIndications: mouth daily. Gastroesophageal reflux disease without esophagitis Active blood glucose test 2 times 50 Each 3 02 stripsIndications: weekly Use 2 0 Controlled type 2 times weekly diabetes mellitus without (once per day complication, without on Mon,Th) long-term current use of to test blood insulin sugar. Active amLODIPine (NORVASC) 10 Take 1 tablet 90 tablet 3 mg tabletIndications: by mouth once 0 Essential hypertension daily 12/09/2020 Active tropicamide (MYDRIACYL) Instill 1 15 mL 0 0.5 % ophthalmic Drop in each 0 solutionIndications: Type eye once as 2 diabetes mellitus with needed for up complication, without to 1 dose long-term current use of (for poor insulin retina scan image). Active escitalopram (LEXAPRO) 5 Take 1 tablet 90 tablet 1 mg tabletIndications: by mouth 0 Depressed mood daily. Active clotrimazole (LOTRIMIN) 1 Apply to 56.7 g 3 % topical affected area 0 creamIndications: 2 times daily Onychomycosis For toe nail fungus. Active hydroCHLOROthiazide TAKE 1 TABLET 90 tablet 1 05/24 (HYDRODIURIL) 25 mg BY MOUTH ONCE 0 tabletIndications: DAILY FOR Essential hypertension HIGH BLOOD PRESSURE Active losartan (COZAAR) 100 mg Take 1 tablet 90 tablet 2 tabletIndications: by mouth 0 Essential hypertension daily. Active metFORMIN (GLUCOPHAGE XR) Take 1 tablet 180 tablet 3 500 mg ER extended by mouth 2 0 release times daily. tabletIndications: Type 2 diabetes mellitus with complication, without long-term current use of insulin Active blood glucose Use as 1 Kit 0 meterIndications: Type 2 directed.. 0 diabetes mellitus without complication, without long-term current use of insulin Active lancets 28 Use 2 times 100 Each 1 gaugeIndications: daily 0 Controlled type 2 diabetes mellitus without complication, without long-term current use of insulin Active albuterol 90 Inhale 2 1 Inhaler 0 mcg/actuation Puffs by 0 inhalerIndications: mouth 4 times COVID-19 virus infection daily as needed for Shortness of Breath (cough). 01/25/2020 Discontinued (Therapy comple isaac) blood glucose Use as 1 Kit 0 meterIndications: directed. 3 Borderline diabetes 07/21/2020 Discontinued (Reorder) blood glucose Use as 1 Kit 0 meterIndications: Type 2 directed.. 8 diabetes mellitus without complication, without long-term current use of insulin 01/25/2020 Discontinued (Therapy comple isaac) naproxen (NAPROSYN) 375 Take 1 tablet 30 tablet 0 mg tabletIndications: by mouth 3 8 Chronic tension-type times daily headache, not intractable with meals. 01/25/2020 Discontinued (Therapy comple isaac) fluticasone (FLONASE) 50 Use 1 [place] 16 g 0 0 mcg/actuation nasal in each 8 sprayIndications: nostril Bronchitis, allergic, daily. unspecified asthma severity, uncomplicated 01/25/2020 Discontinued (Reorder) lancets 28 gauge Use 2 times 100 Each 1 daily 8 01/25/2020 Discontinued (Therapy comple isaac) loratadine (CLARITIN) 10 Take 1 tablet 90 tablet 0 mg tabletIndications: by mouth 9 Nasal polyp daily. 10/05/2019 tropicamide (MYDRIACYL) Instill 1 15 mL 0 0.5 % ophthalmic Drop in each 9 solutionIndications: Type eye once as 2 diabetes mellitus with needed for up complication, unspecified to 1 dose whether exterminator helper insulin (for poor use retina scan image). 01/25/2020 Discontinued (Therapy comple isaac) ketoconazole (NIZORAL) 2 Apply to 60 g 2 0 % topical affected area 9 creamIndications: 2 times Onychomycosis daily. 07/10/2020 Discontinued (Reorder) losartan (COZAAR) 100 mg Take 1 tablet 180 tablet 3 tabletIndications: by mouth 9 Essential hypertension daily. 06/15/2020 Discontinued hydroCHLOROthiazide Take 1 tablet 90 tablet 3 05/24 (HYDRODIURIL) 25 mg by mouth 9 tabletIndications: daily FOR Essential hypertension HIGH BLOOD PRESSURE. 06/08/2020 Discontinued amLODIPine (NORVASC) 10 Take 1 tablet 90 tablet 3 mg tabletIndications: by mouth 9 Essential hypertension daily. 07/10/2020 Discontinued (Reorder) metFORMIN (GLUCOPHAGE XR) Take 1 tablet 180 tablet 3 500 mg ER extended by mouth 2 9 release times daily. tabletIndications: Type 2 diabetes mellitus with complication, without long-term current use of insulin 07/21/2020 Discontinued (Reorder) lancets 28 Use 2 times 100 Each 1 gaugeIndications: daily 0 Controlled type 2 diabetes mellitus without complication, without long-term current use of insulin 07/10/2020 Discontinued (Reorder) losartan (COZAAR) 100 mg Take 1 tablet 180 tablet 3 tabletIndications: by mouth 0 Essential hypertension daily. 07/28/2020 benzonatate (TESSALON Take 1 20 capsule 0 06/24 PERLES) 100 mg capsule by 0 capsuleIndications: mouth 3 times COVID-19 virus infection daily as needed for up to 7 days for Cough. Active Problems Problem Noted Date Carpal tunnel syndrome of right wrist 01/06/2018 Controlled type 2 diabetes mellitus without complicat ion, without long-term 01/06/2018 current use of insulin Chronic tension headaches - Left-sided and occur ever y 3-4 weeks since 200201/06/2018 Mixed hyperlipidemia 01/06/2018 Generalized weakness 01/06/2018 S/P carpal tunnel release 10/03/2017 Endometrial polyp 10/05/2015 Cataracts, both eyes 05/02/2015 No diabetic retinopathy in both eyes 05/02/2015 Pain in joint involving shoulder region 10/03/2014 Weakness 10/03/2014 Gingivitis Chronic 07/12/2014 Decay, teeth 05/03/2014 Onychomycosis 01/13/2009 Essential hypertension, benign Metabolic syndrome Encounters Care Team Description Date Type Specialty Starla French MD Type 2 diabetes mellitus without complic ation, without long-term current use of insulin 08/02/2020 Teleonic Family Practice Encounter Starla French MD COVID-19 virus infection (Primary Dx); Type 2 diabetes mellitus without complication, without long-term current use of insulin; Controlled type 2 diabetes mellitus without complication, without long-term current use of insulin 07/21/2020 Telephonic Family Practice Encounter Gabriela Martínez, RN 07/15/2020 Orders Only Case Management Mami Morgan, SRUTHI 07/14/2020 Nurse Triage Mee Unger, Type 2 diabetes mellitus with complicati on, without long-term current use of insulin (Primary Dx); Essential hypertension 07/10/2020 Telephonic Family Practice Encounter Janelle Collins MD Medications 07/06/2020 Refill Family Practice Starla French MD Type 2 diabetes mellitus with complicati on, without long-term current use of insulin 06/27/2020 Ancillary Ophthalmology Procedure Starla French MD Breast cancer screening 06/27/2020 Ancillary Radiology Procedure Janelle Collins MD Medications 06/15/2020 Refill Family Practice Starla French MD Depressed mood (Primary Dx); Type 2 diabetes mellitus with complication, without long-term current use of insulin; Colon cancer screening; Onychomycosis 06/12/2020 Office Visit Family Practice Janelle Collins MD Medications 06/06/2020 Refill Family Practice Starla French MD Colon cancer screening (Primary Dx); Health care maintenance; Controlled type 2 diabetes mellitus without complication, without long-term current use of insulin; Breast cancer screening 01/25/2020 Telephonic Family Practice Encounter after 08/16/2019 Immunizations Name Administration Dates Next Due Herpes Zoster Vaccine In 02/13/2018, 11/06/2017 (Def erred: Other - received Clinic flu on 10/30/17) Influenza <Unspecified> 10/30/2017 Influenza A (H1N1) Vac 10/19/2009 Injection Influenza Vaccine 09/09/2016, 06/26/2015, , 07/19/2013, 07/09/2012, 07/25/2011, 09/24/2010, , 11/20/2007, 07/14/2006 Influenza Vaccine, 06/22/2018 Seasonal, Injectable PPV 23 Pneumococcal 06/17/2016 Polysaccaride Pneumoccoccal 03/11/2015 (Deferred: Contr aindication) Td Tetanus, diphtheria 01/17/2006 Toxoids Vaccine Tdap Tetanus, diphtheria, 06/17/2016 acellular pertussis Vaccine Family History Medical History Relation Name Comments Diabetes Brother Relation Name Status Comments Brother Alive x2 Brother Alive Brother Alive Brother Alive Brother Alive Brother Alive Brother Alive Brother Alive Brother Alive Daughter Alive Daughter Alive Father killed (Age 27) Maternal Grandfather Maternal Grandmother Mother Alive Paternal Grandfather Paternal Grandmother Sister Alive x2 Sister Alive Son Alive Son Alive Son Alive Son Alive Social History Date Tobacco Use Types Packs/Day Years Used Never Smoker Smokeless Tobacco: Never Used Tobacco Cessation: Counseling Given: No Drinks/Week oz/Week Comments Alcohol Use No Food Insecurity Answer Date Recorded Within the past 12 months, you worried that your Never corine e 12/10/2018 food would run out before you got money to buy more. Within the past 12 months, the food you bought Never true 12/10/2018 just didn't last and you didn't have mo sigrid to get more. Sex Assigned at Date Recorded Not on file Industry Job Start Date Occupation Not on file Not on file Not on file Travel End Travel History Travel Start No recent travel history available. 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 Last Filed Vital Signs Reading Time Taken Comments Vital Sign 152/75 06/12/2020 8:15 AM CDT Blood Pressure 98 06/12/2020 8:15 AM CDT Pulse 36.7 C (98.1 F) 06/12/2020 8:15 AM CDT Temperature 16 06/12/2020 8:15 AM CDT Respiratory Rate - - Oxygen Saturation - - Inhaled Oxygen Concentration 85.5 kg (188 lb 6.4 oz) 06/12/2020 8:15 AM CDT Weight 149.9 cm (4' 11") 06/12/2020 8:15 AM CDT Height 38.05 06/12/2020 8:15 AM CDT Body Mass Index Plan of Treatment Care Team Description Date Type Specialty Starla French MD [address] [place] [id number] [phone] 08/30/2020 Office Visit Family Practice Health Maintenance Due Date Last Done Comments HPV Cervical Cancer Scrn 06/26/2020 06/26/2015 Pap Cervical Cancer Scrn 06/26/2020 06/26/2015, 04/23/2011, 04/23/2011, Additional history exists DM Foot Exam (Yearly) 06/12/2021 06/12/2020, 04/08/2019, 02/13/2018, Additional history exists DM HGBA1C (Yearly) 06/12/2021 06/12/2020, 01/26/2020, 04/08/2019, Additional history exists Breast Cancer Scrn 06/27/2021 06/27/2020, (Yearly) 04/08/2019, 03/11/2018, Additional history exists Colorectal Cancer Scrn 06/27/2021 06/27/2020, Annual (FIT/FOBT) Age 52 05/21/2018, to 77 02/07/2017, Additional history exists DM Retinal Exam (Yearly) 06/27/2021 06/27/2020, 05/17/2019, 11/06/2017, Additional history exists Procedures Comments Procedure Name Priority Date/Time Associated Diag nosis FECAL OCCULT BLOOD Routine 06/27/2020 Colon cance r screening 11:11 AM CDT OPHTHALMOLOGY RETINAL Routine 06/27/2020 Type 2 d iabetes mellitus SCAN 8:45 AM CDT with complication, without long-term current use of insulin MAMMOGRAM BILAT SCREEN Routine 06/27/2020 Breast cancer screening DIGITAL 8:28 AM CDT THYROID STIMULATING Routine 06/12/2020 Depressed mood HORMONE (TSH) 9:09 AM CDT VIT D, 25-HYDROXY Routine 06/12/2020 Depressed mo od 9:09 AM CDT IRON PROFILE Routine 06/12/2020 Depressed mood 9:09 AM CDT FERRITIN Routine 06/12/2020 Depressed mood 9:09 AM CDT FOLIC ACID Routine 06/12/2020 Depressed mood 9:09 AM CDT VITAMIN B12 Routine 06/12/2020 Depressed mood 9:09 AM CDT HEMOGLOBIN A1C Routine 06/12/2020 Type 2 diabetes mellitus 9:09 AM CDT with complication, without long-term current use of insulin HEMOCCULT KIT FOR Routine 06/12/2020 Colon cancer screening SPECIMEN COLLECTION AT 8:49 AM CDT HOME DIABETIC FOOT EXAM Routine 06/12/2020 Type 2 diab etes mellitus 8:33 AM CDT with complication, without long-term current use of insulin THYROID STIMULATING Routine 01/26/2020 Health car e maintenance HORMONE (TSH) 12:49 PM CDT HEMOGLOBIN A1C Routine 01/26/2020 Health care [place] n[place] 12:49 PM CDT LIPID PROFILE Routine 01/26/2020 Health care [place] 12:49 PM CDT COMPREHENSIVE METABOLIC Routine 01/26/2020 Health care maintenance PANEL 12:49 PM CDT HEMOCCULT KIT FOR Routine 01/25/2020 Colon cancer screening SPECIMEN COLLECTION AT 9:50 AM CDT HOME after 08/16/2019 Results * FECAL OCCULT BLOOD (06/27/2020 11:11 AM CDT) Occult Blood Negative Negative [facility] Specimen Stool - Feces Narrative Performed At Collected on 06/26/2020 [facility] Performing Organization Address [facility] one Number [facility] [address] [place] [address] * OPHTHALMOLOGY RETINAL SCAN (06/27/2020 8:45 AM CDT) RETINAL NORMAL IRIS SCAN-FINAL RESULT Right Diabetic None IRIS Retinopathy Right Macular None IRIS Edema Right Other None IRIS Suspected Conditions Right Image Gradable Image IRIS Quality Left Diabetic None IRIS Retinopathy Left Macular None IRIS Edema Left Other None IRIS Suspected Conditions Left Image Gradable Image IRIS Quality Specimen Narrative Performed At Retinal Study Result for LENI CASILLASTIannalisa Hill 65 y/o, F (: 9[birth year], ) presented to [facility] on 06-27-2020 for a retinal imaging study of the left and r ight eyes. Based on the findings of the study, the following is recommended for LENI GARCIA Normal Scan: Please advise the patient to return for another scan in 1 year. Interpreting Provider's Comments: No comments provided Right eye findings: Normal Result. Ne gative for Diabetic Retinopathy. Left eye findings: Normal Result. Neg ative for Diabetic Retinopathy. This result was electronically signed Nawaf Goncalves MD, , Taxonomy: [id number] on 06-27-2020 03:5 3:36 UT time. NOTE: Any pathology noted on this andres betic retinal evaluation should be confirmed by an appropriate ophthalmic examination. Performing Organization Address [facility] one Number IRIS * MAMMOGRAM BILAT SCREEN DIGITAL (06/27/2020 8:28 AM CDT) Specimen Impressions Performed At IMPRESSION: BENIGN SMS There is no mammographic evidence of ma lignancy. A 1 year screening mammogram is recommended. I have reviewed the study and agree wit h the findings in the report. This document has been electronically s igned. me Erazo M.D./enedina:06/27/2020 08:31:44 Records Management Analyst: Josee Schwarz robyn RT(R)(M), [facility] letter sent: Benign Exam Mammogram BI-RADS: 2 Benign G0202 z1 2.31 Narrative Performed At #[id number] - MAMMOGRAM BILAT SCREEN DIGITAL SMS BILATERAL DIGITAL SCREENING MAMMOGRAM W ITH CAD: 06/27/2020 CLINICAL: Screening for malignancy. Comparison is made to exams dated: , 03/11/2018, 03/14/2017, 03/14/2016, 10/27/2014, and 08/27/2013 [facility]. There are scattered fibroglandular [place] ents in both breasts that could obscure a lesion on mammography. Current study was also evaluated with a Computer Aided Detection (CAD) system. There are benign calcifications in both breasts. No significant masses, calcifications, or other findings are seen in either breast. There has been no significant interval change. Procedure Note Interface, Rad/Mammog In - 06/27/2020 9:32 AM CDT #[id number] - MAMMOGRAM BILAT SCREEN DIGITAL BILATERAL DIGITAL SCREENING MAMMOGRAM WITH CAD: 06/27/2020 CLINICAL: Screening for malignancy. Comparison is made to exams dated: 04/08/2019, 03/11/2018, 03/14/2017, 03/14/2016, 10/27/2014, and 08/27 [facility]. There are scattered fibroglandular elements in both breasts that could obscure a lesion on mammography. Current study was also evaluated with a Computer Aided Detection (CAD) system. There are benign calcifications in both breasts. No significant masses, calcifications, or other findings are seen in either breast. There has been no significant interval change. IMPRESSION IMPRESSION: BENIGN There is no mammographic evidence of malignancy. A 1 year screening mammogram is recommended. I have reviewed the study and agree with the findings in the report. This document has been electronically signed. Ezequiel Sims,/enedina:06/27/2020 08:31:44 Records Management Analyst: James Josee Melchor RT(R)(M), [facility] letter sent: Benign Exam Mammogram BI-RADS: 2 Benign G0202 z12.31 Performing Organization Address [facility] one Number SMS * Vitamin D, 25-Hydroxycalciferol (06/12/2020 9:09 AM CDT) Vit D, 24.1 (L) 30.0 - 100.0 ng/mL [facility] 25-Hydroxy LABORATORY Vitamin D Insufficient (A) Sufficient [facility] Interpretation Comment: LABORATORY Sufficient: >30.0 Insufficient: 20.0 - 29.9 Deficient: <20.0 Specimen Blood Performing Organization Address [facility] one Number [facility] [address] [place] [address] [phone] * Hemoglobin A1C (06/12/2020 9:09 AM CDT) Only the most recent of 2 results within the time period is included. Hemoglobin A1c 7.3 (H) 4.3 - 6.1 % [facility] Estimated 163 (H) 70 - 110 mg/dL [facility] Average Glucose LABORATORY Specimen Blood Performing Organization Address [facility] one Number [facility] [address] [place] [id number] [phone] * TSH [Thyroid Stimulating Hormone] (06/12/2020 9:09 AM CDT) Only the most recent of 2 results within the time period is included. TSH 1.85 0.45 - 5.33 uIU/mL [facility] Comment: LABORATORY If , please see the following reference ranges (not verified by lab): 1st Trimester: 0.05 -3.70 uIU/mL 2nd Trimester: 0.31 -4.35 uIU/mL 3rd Trimester: 0.41 - 5.18 uIU/mL Specimen Blood Performing Organization Address [facility] one Number [facility] [address] [place], [place] [id number] [phone] * Folic Acid (06/12/2020 9:09 AM CDT) Folic Acid 11.8 5.9 - 24.8 ng/mL [facility] Patien Fasting? Yes [facility] Specimen Blood Performing Organization Address [facility] one Number [facility] [address] [place] [address] * Ferritin (06/12/2020 9:09 AM CDT) Ferritin 164.7 11.0 - 306.8 ng/mL [facility] Specimen Blood Performing Organization Address [facility] one Number [facility] [address] [place] [address] * Vitamin B12 (06/12/2020 9:09 AM CDT) Vitamin B12 252 See comment pg/mL [facility] Comment: LABORATORY Normal: 180-914 pg/mL Intermittent: 145-180 pg/mL Deficient: <=145.0 pg/mL Specimen Blood Performing Organization Address [facility] one Number [facility] [address] [place] [address] * Iron Profile (06/12/2020 9:09 AM CDT) TIBC 269 250 - 450 ug/dL [facility] UIBC 158 118 - 369 ug/dL [facility] Iron 111 27 - 139 ug/dL [facility] % Iron Sat 41 15 - 55 % [facility] Specimen Blood Narrative Performed At Performed at: [address] [place] [address] [facility] [address] [place] [address] Product Control And Logistics Analyst: Tim Pedraza MD, Phone: [phone] Performing Organization Address [facility] one Number [facility] [address] [place] [address] * DIABETIC FOOT EXAM (06/12/2020 8:33 AM CDT) Narrative Performed At Starla French MD 2019 9:07 AM Diabetic Foot Exam was performed at 05/24 8:35 AM. Right foot sensation is normal, right foot pulses are normal, right foot appearance is normal. Left foot sensation is nor mal, left foot pulses are normal, left foot appearance is normal. * Comprehensive Metabolic Panel (01/26/2020 12:49 PM CDT) Sodium 140 136 - 145 mmol/L [facility] Potassium 4.1 3.5 - 5.1 mmol/L [facility] Chloride 103 98 - 107 mmol/L [facility] CO2 26 21 - 31 mmol/L [facility] Glucose 121 (H) 70 - 110 mg/dL [facility] Calcium 9.8 8.6 - 10.3 mg/dL [facility] Urea Nitrogen 18.0 7.0 - 25.0 mg/dL [facility] Creatinine 1.0 0.6 - 1.2 mg/dL [facility] Alkaline 104 34 - 104 U/L [facility] Phosphatase LABORATORY ALT 14 7 - 52 U/L [facility] AST 14 13 - 39 U/L [facility] Bilirubin, 0.5 0.2 - 1.2 mg/dL [facility] Total LABORATORY Total Protein 7.5 6.0 - 8.3 g/dL [facility] GFR, Estimated 56 (L) >=90 mL/min/1.73 m2 [facility] Albumin 4.3 3.7 - 5.3 g/dL [facility] Anion Gap 11 5 - 16 mmol/L [facility] Specimen Blood Performing Organization Address [facility] one Number [facility] [address] [place] [address] * Lipid Profile (01/26/2020 12:49 PM CDT) Pathologist [facility] Cholesterol 171.0 <=200.0 mg/dL [facility] Triglyceride 162 (H) <150 mg/dL [facility] HDL 47.0 See Reference Range [facility] Narrative. mg/dL LABORATORY LDL 92 <100 mg/dL [facility] Comment: LABORATORY Optimal: < 100.0 mg/dL Near Optimal: 120-129 mg/dL Borderline: 130-159 mg/dL High: 160-189 mg/dL Very High: >=190 mg/dL Patient No [facility] Fasting? LABORATORY Specimen Blood Narrative Performed At Patient is not fasting. For a triglyceride result gre ater than 440 mg/dL, [facility] consider re-testing when the patient is in a fasting state. Performing Organization Address [facility] one Number [facility] [address] [place], [place] [phone] after 08/16/2019 Insurance Type Payer Benefit Subscriber ID Effective Phone Address Plan / Dates Group AETNA AETNA xxxxxxxxxx 2019-P [phone] [address] [place] [address] [place] [address] [facility] SELF-PAY SELF-PAY xxxxx 2017- [phone] [id number] [place] [address] Advance Directives Date Inactivated Comments Code Status Date Activated 10/24/2015 4:17 PM Full Code 10/24/2015 7:39 AM
[2020-08-16 06:14] LABS: BASOPHILS # (AUTO) 0.1 (0.0-0.1); BASOPHILS % 0.9 % (0.0-1.0); EOSINOPHILS # (AUTO) 0.1 (0.0-0.4); EOSINOPHILS % 1.8 % (0.0-6.0); HEMATOCRIT 37.9 % (34.2-44.1); HEMOGLOBIN 13.2 g/dL (12.0-16.0); MEAN CORPUSCULAR HGB CONC 34.8 g/dL (31-35); MEAN CORPUSCULAR VOLUME 86.1 fL (81-99); MONOCYTES # (AUTO) 0.6 (0.2-0.8); MONOCYTES % 10.5 % (4.4-11.3); NEUTROPHILS # (AUTO) 1.9 (2.1-6.9); NEUTROPHILS % 33.3 % (38.7-80.0); PLATELET COUNT 232 x10e3/uL (140-360); RED CELL DISTRIBUTION WIDTH 12.8 % (11.7-14.4)
--- NOTE | 2020-08-16 06:21 | Emergency Department Note ---
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 Any updates have been documented here. Past Medical History Recent Fever: No Clinical Suspicion of Infectio: No New/Unexplained Change in Ment: No Past Medical History: Hypertension, Diabetes Other Medical History: HIGH CHOLESTEROL COVID + JUN 2020 Past Surgical History: Tubal Ligation Other Surgery: SX TO REMOVE CERVICAL MASS CARPAL TUNNEL SX R HAND Social History Physically hurt or threatened: No Review of Systems Review of Systems Constitutional: Reports no symptoms EENTM: Reports no symptoms Cardiovascular: Reports no symptoms Respiratory: Reports as per HPI, Reports dyspnea Gastrointestinal: Reports no symptoms Genitourinary: Reports no symptoms Musculoskeletal: Reports no symptoms Integumentary: Reports no symptoms Neurological: Reports no symptoms Psychological: Reports no symptoms Endocrine: Reports no symptoms Hematological/Lymphatic: Reports no symptoms Physical Exam Related Data Allergies: Coded Allergies: enalapril (Verified Allergy, Unknown, 08/16/20) Triage Vital Signs Vital Signs Date Time Temp Pulse Resp B/P (MAP) Pulse Ox O2 Delivery O2 Flow Rate FiO2 08/16/20 05:40 99.2 110 21 156/61 99 08/16/20 06:02 Room Air Vital signs reviewed: Yes Physical Exam CONSTITUTIONAL Constitutional: Present well-developed, Present well-nourished HENT HENT: Present normocephalic, Present atraumatic, Present oropharynx clear/moist, Present nose normal HENT L/R: Present left ext ear normal, Present right ext ear normal EYES Eyes: Reports PERRL, Reports conjunctivae normal NECK Neck: Present ROM normal PULMONARY Pulmonary: Present effort normal, Present breath sounds normal CARDIOVASCULAR Cardiovascular: Present regular rhythm, Present heart sounds normal, Present capillary refill normal, Present normal rate GASTROINTESTINAL Abdominal: Present soft, Present nontender, Present bowel sounds normal GENITOURINARY Genitourinary: Present exam deferred SKIN Skin: Present warm, Present dry MUSCULOSKELETAL Musculoskeletal: Present ROM normal NEUROLOGICAL Neurological: Present alert, Present oriented x 3, Present no gross motor or sensory deficits PSYCHOLOGICAL Psychological: Present mood/affect normal, Present judgement normal Results Laboratory Laboratory Laboratory Tests Test 08/16/20 05:55 08/16/20 05:50 08/16/20 05:40 Procedures 12 Lead ECG Interpretation ECG Interpretation : Electric Engine Mechanic: Interpreted by ED physician Date: Aug 16, 2020 Rhythm: sinus rhythm Rate: normal QRS axis: normal ST segments normal: Yes T waves normal: Yes Clinical Impression: normal ECG Assessment & Plan Medical Decision Making MDM 65 y.o F presents for sporadic SoB and generalized weakness for days-weeks. COVID + 1 month ago. Exam benign, mild tachycardia which resolved with out management in ER. Initial diff includes PNA vs PE vs prolonged covid fatigue vs flu among others. W/u Shows no PE, findigns typical of post COVID. 2/2 prolonged chest imaging findings will Rx Z pack and she will f/u w/ her PCP or return to Ed for new/worsening symptoms. Reassessment Reassessment time: 07:05 Reassessment Well appearing, NAD Assessment & Plan Final Impression: (1) Weakness (2) Dyspnea Depart Disposition: HOME, SELF-CARE Last Vital Signs Date Time Temp Pulse Resp B/P (MAP) Pulse Ox O2 Delivery O2 Flow Rate FiO2 08/16/20 06:02 101 17 143/62 100 Room Air 08/16/20 05:40 99.2 Home Meds Active Scripts Azithromycin (Z-HOMERO) 250 Mg Tablet, 250 MG PO UD for 5 Days, #1 UDPKT Z-Pack Prov:SUKHI WAY MD 08/16/[address] MD Aug 16, 2020 06:21
[2020-08-16 06:26] LABS: CLARITY,URINE CLEAR (CLEAR); COLOR,URINE YELLOW (YELLOW); KETONES,URINE 1+ (NEGATIVE); LEUKOCYTE ESTERASE ,URINE NEGATIVE (NEGATIVE); NITRITE,URINE NEGATIVE (NEGATIVE); PROTEIN,URINE DIPSTICK NEGATIVE (NEGATIVE)
[2020-08-16] MEDS ORDERED: SODIUM CHLORIDE 0.9% 500ML 500 ML ONE (06:26)
[2020-08-16 06:27] LABS: BILIRUBIN,URINE NEGATIVE (NEGATIVE); URINE UROBILINOGEN 0.2 mg/dL (0.2 - 1)
[2020-08-16] MEDS ORDERED: SODIUM CHLORIDE 0.9% 500ML 500 ML IV ONE (06:30)
[2020-08-16] MEDS ORDERED: SODIUM CHLORIDE 0.9% 1000ML 500 ML IV ONE (06:30)
[2020-08-16 06:38] LABS: BACTERIA,URINE RARE /HPF; EPITHELIAL CELLS,URINE FEW /LPF; RBC,URINE 0-5 /HPF (0-5); WBC,URINE (MAN) 0-5 /HPF (0-5)
--- NOTE | 2020-08-16 06:39 | Diagnostic Imaging Report ---
EXAMINATION: CHEST SINGLE (PORTABLE) INDICATION: ^sob ^[id number] ^[id number] ^Y COMPARISON: None FINDINGS: AP view TUBES and LINES: None. LUNGS: Lungs are well inflated. Central vascular congestion and mild interstitial edema. PLEURA: No significant pleural effusion or pneumothorax. HEART AND MEDIASTINUM: The cardiomediastinal silhouette is unremarkable. Mild thickening of the right paratracheal stripe. BONES AND SOFT TISSUES: No acute osseous lesion. Soft tissues are unremarkable. UPPER ABDOMEN: No free air under the diaphragm. IMPRESSION: Central vascular congestion and mild interstitial edema. Underlying pneumonia cannot be excluded in the appropriate clinical context. Signed by: Dr. Hamzah Fountain MD on 08/16/2020 6:36 AM
[2020-08-16 06:50] LABS: ALANINE AMINOTRANSFERASE 49 IU/L (0-55); ALKALINE PHOSPHATASE 79 IU/L (40-150); ANION GAP 19.8 mmol/L (8-16); BLOOD UREA NITROGEN 23 mg/dL (7-26); BUN/CREATININE RATIO 25 (6-25); CALCIUM 9.4 mg/dL (8.4-10.2); CARBON DIOXIDE 19 mmol/L (22-29); CHLORIDE 100 mmol/L (98-107); CREATINE KINASE 257 IU/L (29-168); CREATININE, SERUM 0.93 mg/dL (0.57-1.11); EST GLOMERULAR FILTRATION RATE > 60 ML/MIN (60-); GLUCOSE 156 mg/dL (74-118); SODIUM 136 mmol/L (136-145)
[2020-08-16 06:56] LABS: POTASSIUM 2.8 mmol/L (3.5-5.1)
[2020-08-16] MEDS ORDERED: POTASSIUM CHLORIDE 20 MEQ TAB CR PO STA (06:59)
[2020-08-16] MEDS ORDERED: POTASSIUM CHLORIDE 20 MEQ TAB CR PO ONE (08:06)
--- NOTE | 2020-08-16 08:44 | Diagnostic Imaging Report ---
EXAMINATION: CT of the chest with contrast, PE protocol. TECHNIQUE: Spiral CT images of the chest were performed from the lung apices through the level of the adrenal glands after the IV administration of 100 cc of Isovue 370. Thin section reconstructions were obtained with special concentration on the pulmonary arteries. COMPARISON: Chest radiograph same day CLINICAL HISTORY:Shortness of breath DISCUSSION: Vasculature: The main pulmonary artery, right and left pulmonary arteries, and their visualized lobar and segmental branches are patent, without filling defect. The pulmonary outflow tract is of normal caliber. No ectasia or aneurysmal dilatation of the thoracic aorta. Mild atherosclerotic calcification at the great vessel origins, with variant anatomy (common origin of the innominate and left common carotid arteries from the aortic arch). Lungs: There are scattered foci of groundglass opacity and tree-in-bud nodularity throughout the lungs, for example in the left upper lobe on image 44, the right upper lobe on image 50, the right lower lobe on image 61, and the left lower lobe on image 70. No bronchiectasis or honeycombing. No gross mass lesion. Airways: Trachea, mainstem bronchi, and central lobar and segmental bronchi are patent. Pleura: <There is no evidence of pleural effusion or pneumothorax.> Heart and mediastinum: No axillary, hilar, or mediastinal lymphadenopathy. Abdomen: Hepatic parenchyma is diffusely hypoattenuating compatible with steatosis. Visualized portions of the spleen, pancreas, adrenals, and upper poles of the kidneys are unremarkable. Bones and soft tissues: No osseous destructive lesions. Mild degenerative disc changes of the thoracic spine. IMPRESSION: <No pulmonary embolus to the level of the segmental branch pulmonary arteries.> Pulmonary findings most compatible with multifocal pneumonia. Consider viral/atypical etiologies. Incidental findings include atherosclerotic vascular disease and hepatic steatosis. Signed by: Dr. Kush Mcmanus M.D. on 08/16/2020 8:40 AM
[2020-08-16] MEDS ORDERED: AZITHROMYCIN250 MG PO (08:54)
[2020-08-16] MEDS ORDERED: SODIUM CHLORIDE 0.9% 50ML 50 ML ONE (09:49)
[2020-08-16] MEDS ORDERED: IOPAMIDOL 370 MG/ML 200 ML INFUS..BTL INJ ONE (09:50)
== END 2020-08-16 09:18 | disposition home or self-care (01) ==
LOC: ER 05:47
DX: R06.00 Dyspnea, unspecified (principal); R53.1 Weakness; I10 Essential (primary) hypertension; E11.65 Type 2 diabetes mellitus with hyperglycemia; E78.00 Pure hypercholesterolemia, unspecified
CPT/HCPCS: 36415; 71045; 71260; 80053; 81001; 82550; 82553; 83605; 83880; 84484; 85025; 85379; 87040; 87400; 93005; 99284; J7040; Q9967